=== PATIENT | female | born 1955 | race Caucasian/White ===

== ENCOUNTER → 2017-12-09 19:28 | Outpatient (CLI) | payer BC | END | disposition home or self-care (01) | LOC: D.MAMMO 09-26 14:00 | DX: Z12.31 Encounter for screening mammogram for malignant neoplasm of breast (principal) ==

== ENCOUNTER 2018-04-28 18:36 | Emergency (ER) | payer BC ==
[~2018-04-28] VITALS: Ht 175.3 cm; Wt 86.4 kg
[2018-04-28 18:48] VITALS: Ht 175.3 cm; Wt 86.4 kg
[2018-04-28] MEDS ORDERED: FORTAMET1000 MG/BO PO (18:50)
[2018-04-28] MEDS ORDERED: FARXIGA10 MG PO (18:50)
[2018-04-28] MEDS ORDERED: CELEXA10 MG (18:51)
[2018-04-28] MEDS ORDERED: TRESIBA FL100 UNIT/1 SC (18:51)
[2018-04-28] MEDS ORDERED: VITAMIN D31000 UNI2 (18:51)
[2018-04-28 19:28] LABS: BASOPHILS 0.4 % (0-2); EOSINOPHILS 4.9 % (0-7); HEMATOCRIT 39.1 % (36.0-48.0); HEMOGLOBIN 12.7 g/dL (12-16); IMMATURE GRANULOCYTES 0.2 % (0-5); LYMPHOCYTES 30.6 % (15-50); MCHC 32.5 g/dL (31.0-37.0); MCV 83.2 fL (80.0-100.0); MEAN PLATELET VOLUME 10.3 fL (7.4-10.4); MONOCYTES 6.9 % (2-11); PLATELET COUNT 276 10x3/uL (130-400); RDW 13.9 % (11.5-14.5); WBC 9.3 10x3/uL (4.8-10.8)
[2018-04-28 20:00] LABS: APTT 26.3 SECONDS (22.8-39.4); INR 1.01 (0.85-1.17); PROTIME 12.9 SECONDS (11.6-15.0)
[2018-04-28 20:28] LABS: ALBUMIN 3.9 g/dL (3.4-5.0); ALKALINE PHOSPHATASE 40 U/L (46-116); ALT (SGPT) 27 U/L (10-68); BILIRUBIN - TOTAL 0.27 mg/dL (0.2-1.3); CALC OSMOLALITY 262 mosm/kg (275-300); CALCIUM 9.1 mg/dL (8.5-10.1); CHLORIDE - SERUM 100 mmol/L (98-107); CREATININE - SERUM 1.1 mg/dL (0.6-1.3); GLUCOSE 132 mg/dL (74-106); POTASSIUM - SERUM 3.8 mmol/L (3.5-5.1); PROTEIN - SERUM 7.6 g/dL (6.4-8.2); SODIUM 129 mmol/L (136-145); UREA NITROGEN 19 mg/dL (7-18); eGFR NON AFRICAN AMERICAN 53 mL/min (90-120)
[2018-04-28 20:39] LABS: CKMB 2.2 U/L (0.0-3.6); LIPASE 183 U/L (73-393); TROPONIN-I < 0.017 ng/mL (0.000-0.060)
[2018-04-28 21:41] VITALS: BP 144/71
== END 2018-04-28 23:35 | disposition home or self-care (01) ==
LOC: D.ER 18:36
PROVIDERS: Family Medicine
DX: R07.9 Chest pain, unspecified (principal); E11.9 Type 2 diabetes mellitus without complications

== ENCOUNTER 2020-07-18 13:00 | Outpatient (CLI) | payer BC ==
[2018-04-28 18:48] VITALS: BMI 28.1
[~2020-07-18 13:00] MED LIST: CELEXA10 MG; FARXIGA10 MG PO; FORTAMET1000 MG/BO PO; TRESIBA FL100 UNIT/1 SC; VITAMIN D31000 UNI2
== END 2020-07-18 23:59 | disposition home or self-care (01) ==
LOC: D.MAMMO 13:00
PROVIDERS: ATTEND Family Medicine
DX: Z12.31 Encounter for screening mammogram for malignant neoplasm of breast (principal)